=== PATIENT | male | born 2005 | race Caucasian/White ===

== ENCOUNTER 2025-08-07 08:26 | Emergency (ER) | payer OTHER ==
[~2025-08-07] VITALS: Ht 185.4 cm; Wt 83.2 kg
[2025-08-07] MEDS ORDERED: BACT800T5 PO (11:02)
[2025-08-07 11:13] VITALS: BP 117/62; TEMP 97.7; O2SAT 98
[2025-08-07] MEDS: IBUPROFEN 800 MG TAB PO ONE (11:18)
== END 2025-08-07 11:22 | disposition home or self-care (01) ==
LOC: M ED 08:26
DX: L03.031 Cellulitis of right toe (principal); F17.210 Nicotine dependence, cigarettes, uncomplicated; F10.10 Alcohol abuse, uncomplicated; Z79.2 Long term (current) use of antibiotics